=== PATIENT | female | born 1955 | race African-American/Black ===

== ENCOUNTER 2020-09-02 11:04 | Emergency (ER) | payer MEDICARE, MEDICAID, SELFPAY ==
[2020-09-02 11:24] VITALS: BP 123/68; PULSE 81; RESP 16; TEMP 36.7; O2SAT 97
--- NOTE | 2020-09-02 11:35 | ED.EYEPROB ---
HPI - Eye Problem General Chief complaint: Eye Problems Stated complaint: Eye Pain Time Seen by Provider: 09/02/20 11:35 Source: patient and RN notes reviewed History of Present Illness HPI Narrative: Patient is a 65-year-old female who presents the urgent care with complaints of bilateral eye irritation, worse on the right. Patient states that she believes that she got some of her fungal cream in her eyes. States that she did this this morning and was advised to be seen at the urgent care. Patient denies of any vision change but states that it does feel grainy when she closes her eyes . Denies of any trauma or injury to the eye. No other acute complaints. No acute distress noted. Patient aware of the plan of care. Some parts of this dictation were generated by voice recognition software and may contain typographical and/or grammatical inaccuracies. Related Data Home Medications Medication Instructions Recorded Confirmed clobetasol TOPICAL 09/02/20 clotrimazole applic TOPICAL 09/02/20 lamotrigine [Lamictal] 09/02/20 metoprolol succinate [Toprol XL] PO 09/02/20 olmesartan-hydrochlorothiazide tablet 09/02/20 [Benicar HCT] potassium chloride [Klor-Con 10] meq PO 09/02/20 Allergies Allergy/AdvReac Type Severity Reaction Status Date / Time ampicillin Allergy Mild Verified 06/14/19 18:33 codeine Allergy Mild Verified 06/14/19 18:33 diphenhydramine Allergy Mild Verified 06/14/19 18:33 hydroxyzine Allergy Mild Verified 06/14/19 18:33 morphine Allergy Mild Verified 06/14/19 18:33 phenytoin Allergy Mild Verified 06/14/19 18:33 sulfamethoxazole Allergy Mild Verified 06/14/19 18:33 tetracycline Allergy Mild Verified 06/14/19 18:33 trimethobenzamide Allergy Mild Verified 06/14/19 18:33 trimethoprim Allergy Mild Verified 06/14/19 18:33 divalproex sodium Allergy Unknown Verified 06/14/19 18:33 phenobarbital Allergy Unknown Verified 06/14/19 18:33 Review of Systems Review of Systems: Narrative: CONSTITUTIONAL: Denies fever, chills, or sweats. EYES: Reports of redness and irritation to bilateral eyes, worse on the right ENT: Denies rhinorrhea, congestion, sore throat, or otalgia. CARDIOVASCULAR: Denies chest pain, palpitations, or edema. RESPIRATORY: Denies cough or dyspnea. GASTROINTESTINAL: Denies abdominal pain, nausea, vomiting, or diarrhea. GENITOURINARY: Denies dysuria or hematuria. SKIN: Denies rash or itching. MUSCULOSKELETAL: Denies back pain, joint pain, or myalgia. NEUROLOGIC: Denies headache, numbness, or weakness. All other systems reviewed are negative, except as documented in HPI. PMFSH Comments At the time of my signature, I reviewed and agree with the nursing past medical, surgical, social, and family history. There is no relevant family history pertinent to the patient complaint. Exam Narrative: Exam Narrative: GENERAL: This is a well-nourished, well-developed patient, in no apparent distress. HEAD: normocephalic, atraumatic. EYES: PERRL. Sclera mildly erythemic bilaterally. Vision is grossly intact. No obvious foreign body or injury noted to bilateral eyes. Clear tearing. EARS: External ears normal NOSE: External nose normal with no obvious nasal discharge, nares without redness, no rhinorrhea. THROAT: Mucous membranes moist NECK: Neck supple SKIN: warm, intact with no suspicious lesions or rash, good texture and turgor. NEURO: awake, alert, and oriented to person, place and time. There were no obvious focal neurologic abnormalities. EXTREMITIES: No clubbing, cyanosis, or edema. Course Vital Signs Vital signs: Vital Signs Temperature 98.1 F 09/02/20 11:24 Pulse Rate 81 09/02/20 11:24 Respiratory Rate 16 09/02/20 11:24 Blood Pressure 123/68 09/02/20 11:24 Pulse Oximetry 97 09/02/20 11:24 Temperature 98.1 F 09/02/20 11:24 Pulse Rate 81 09/02/20 11:24 Respiratory Rate 16 09/02/20 11:24 Blood Pressure 123/68 09/02/20 11:24 Pulse Oximetry 97
== END 2020-09-02 12:04 | disposition home or self-care (01) ==
PROVIDERS: Emergency Provider Nurse Practitioner Family; PCP Family Medicine
DX: H57.89 Other specified disorders of eye and adnexa (principal); G40.909 Epilepsy, unspecified, not intractable, without status epilepticus; I10 Essential (primary) hypertension
CPT/HCPCS: 99213; G0463

== ENCOUNTER 2021-03-06 15:39 | Emergency (ER) | payer MEDICARE, MEDICAID, SELFPAY ==
[2021-03-06 15:51] VITALS: BP 117/64; PULSE 67; RESP 16; TEMP 36.4; O2SAT 100
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
[2021-03-06] MEDS: FAMOTIDINE 20 MG TABLET PO (16:46)
== END 2021-03-06 17:24 | disposition home or self-care (01) ==
PROVIDERS: Emergency Provider Nurse Practitioner Family
DX: L50.9 Urticaria, unspecified (principal); I10 Essential (primary) hypertension; G47.33 Obstructive sleep apnea (adult) (pediatric); G40.909 Epilepsy, unspecified, not intractable, without status epilepticus
CPT/HCPCS: 96372; 99213; A9270; G0463; J1100

== ENCOUNTER 2021-07-22 13:56 | Emergency (ER) | payer MEDICARE, MEDICAID, SELFPAY ==
[2021-07-22 14:09] VITALS: BP 138/81; PULSE 74; RESP 18; TEMP 36.2; O2SAT 97
--- NOTE | 2021-07-22 14:23 | ED.DENTAL ---
HPI - Dental/Oral General Chief complaint: Dental/Oral Stated complaint: Tooth Pain Time Seen by Provider: 07/22/21 14:23 Source: patient and RN notes reviewed Mode of arrival: ambulatory Limitations: no limitations History of Present Illness MD Complaint: tooth pain Location: Tooth # (12) Related Data Home Medications Medication Instructions Recorded Confirmed lamotrigine [Lamictal] 09/02/20 metoprolol succinate [Toprol XL] PO 09/02/20 potassium chloride [Klor-Con 10] meq PO 09/02/20 olmesartan-hydrochlorothiazide tablet 03/06/21 [Benicar HCT] Allergies Allergy/AdvReac Type Severity Reaction Status Date / Time ampicillin Allergy Mild Rash Verified 07/22/21 14:04 codeine Allergy Mild Rash Verified 07/22/21 14:04 diphenhydramine Allergy Mild Rash Verified 07/22/21 14:04 hydroxyzine Allergy Mild Rash Verified 07/22/21 14:04 morphine Allergy Mild Anaphylaxis Verified 07/22/21 14:04 phenytoin Allergy Mild Rash Verified 07/22/21 14:04 sulfamethoxazole Allergy Mild Rash Verified 07/22/21 14:04 tetracycline Allergy Mild Rash Verified 07/22/21 14:04 trimethobenzamide Allergy Mild Rash Verified 07/22/21 14:04 trimethoprim Allergy Mild Rash Verified 07/22/21 14:04 divalproex sodium Allergy Unknown Rash Verified 07/22/21 14:04 phenobarbital Allergy Unknown Rash Verified 07/22/21 14:04 Review of Systems Review of Systems: CONSTITUTIONAL: Denies malaise, chills, sweats, or fever. ENT: Denies swollen lips, swollen tongue, difficulty swallowing. Reports left upper dental pain and swelling CARDIOVASCULAR: Denies chest pain, palpitations, or edema. RESPIRATORY: Denies cough or dyspnea. SKIN: Denies rash or itching. MUSCULOSKELETAL: Denies myalgia. NEUROLOGIC: Denies headache. All systems reviewed & are unremarkable except as noted in HPI and below PMFSH Past Medical History Medical History (Updated 07/22/21 @ 14:34 by Guerda Worley NP) Hx of migraines Hypertension Obesity Obstructive sleep apnea Seizures Tumor Tumor removed from underneath chin Surgical History Surgical History (Updated 03/06/21 @ 16:41 by ANUPAM Burnett) History of cholecystectomy History of hysterectomy Family History Family History (Updated 03/06/21 @ 16:43 by ANUPAM Burnett) Father Throat cancer Smoker Mother , from complications related to COPD obtain due to secondhand smoke Hypertension Social History Social History (Updated 03/06/21 @ 16:43 by ANUPAM Burnett) Smoking status: Never smoker Tobacco type: cigarettes Second hand tobacco smoke exposure: No Alcohol intake: never Substance use: never Additional occupation/education comments: Disable Gender identity (if verbalized by the patient): Female Sexual Orientation (if Verbalized by the Patient): Straight or Heterosexual Comments At time of signature, agree with nursing past medical, surgical, social and family history. There is no relevant family history pertinent to the presenting complaint Exam Narrative: GENERAL: Well-appearing, well-nourished, and in no acute distress. HEAD: Normocephalic, atraumatic. EYES: PERRLA, sclera clear, and EOMI. No nystagmus. ENT: Nares irina. Mucous membranes moist. Oropharynx without edema, erythema or lesions. Missing teeth, broken teeth, caries noted left upper facial swelling noted NECK: Supple. CHEST: No respiratory distress. Speaks in full sentences. HEART: Regular rate and rhythm. SKIN: Warm, dry, no visible rash. NEURO: Alert and oriented x3. PSYCH: Normal mood and affect Course Course Emergency Course: Patient is aware of diagnosis, understands and agrees to treatment plan. Anticipatory guidance given. Patient agrees to follow-up as directed and is aware of reasons to seek care at the emergency department. Portions of this record may have been created with voice recognition software Vital Signs Vital signs: Vital Signs Temperature 97.1 F
== END 2021-07-22 14:45 | disposition home or self-care (01) ==
PROVIDERS: Emergency Provider Nurse Practitioner; PCP Family Medicine
DX: K04.7 Periapical abscess without sinus (principal); I10 Essential (primary) hypertension; E66.9 Obesity, unspecified; G47.33 Obstructive sleep apnea (adult) (pediatric); G40.909 Epilepsy, unspecified, not intractable, without status epilepticus
CPT/HCPCS: 99213; G0463

== ENCOUNTER 2021-08-23 14:17 | Emergency (ER) | payer MEDICARE, MEDICAID, SELFPAY ==
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
[2021-08-23 14:27] VITALS: BP 148/83; PULSE 70; RESP 18; TEMP 36.2; O2SAT 99
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
== END 2021-08-23 15:41 | disposition home or self-care (01) ==
PROVIDERS: Emergency Provider Nurse Practitioner Family
DX: R51.9 Headache, unspecified (principal); Y26.XXXA Exposure to smoke, fire and flames, undetermined intent, initial encounter; I10 Essential (primary) hypertension; E66.9 Obesity, unspecified; Z68.43 Body mass index [BMI] 50.0-59.9, adult; G47.33 Obstructive sleep apnea (adult) (pediatric); G40.909 Epilepsy, unspecified, not intractable, without status epilepticus
CPT/HCPCS: 71046; 99213; G0463

== ENCOUNTER 2022-10-03 00:43 | Day surgery (SDC) | payer MEDICARE, MEDICAID, SELFPAY ==
[2022-09-22 14:15] VITALS: BMI 52.7
[2022-10-03 06:45] VITALS: BP 145/76; PULSE 84; RESP 17; TEMP 36.1; O2SAT 96; BMI 53.6
[2022-10-03] MEDS: LACTATED RINGERS 1,000 ML 150 ML IV CONT (07:02)
--- NOTE | 2022-10-03 07:07 | WPDANESEPPF ---
Anes - Initial Pre Proc Eval Procedure: Operation Date: 10/03/22 08:00 Proposed Procedures p Colonoscopy - Octaviano Harris MD Date/Time: 10/03/22 07:07 Surgeon: Octaviano Harris MD Pre Op Diagnosis: positive cologuard Patient Data Age: 67 Gender: F Height: 1.6 m Weight: 137.4 kg Last Vital Signs Temp 36.1 C L 10/03/22 06:45 Pulse 84 10/03/22 06:45 Resp 17 10/03/22 06:45 BP 145/76 H 10/03/22 06:45 Pulse Ox 96 10/03/22 06:45 O2 Del Method Room Air 10/03/22 06:45 Allergies Allergy/AdvReac Type Severity Reaction Status Date / Time ampicillin Allergy Mild Rash Verified 10/03/22 06:43 codeine Allergy Mild Rash Verified 10/03/22 06:43 diphenhydramine Allergy Mild Rash Verified 10/03/22 06:43 hydroxyzine Allergy Mild Rash Verified 10/03/22 06:43 morphine Allergy Mild Anaphylaxis Verified 10/03/22 06:43 phenytoin Allergy Mild Rash Verified 10/03/22 06:43 sulfamethoxazole Allergy Mild Rash Verified 10/03/22 06:43 tetracycline Allergy Mild Rash Verified 10/03/22 06:43 trimethobenzamide Allergy Mild Rash Verified 10/03/22 06:43 trimethoprim Allergy Mild Rash Verified 10/03/22 06:43 divalproex sodium Allergy Unknown Rash Verified 10/03/22 06:43 phenobarbital Allergy Unknown Rash Verified 10/03/22 06:43 Home Medications Medication Instructions Recorded Confirmed Type lamotrigine 200 mg tablet 200 mg PO DAILY 09/02/20 10/03/22 History (Lamictal) metoprolol succinate 50 mg 50 mg PO DAILY 09/02/20 10/03/22 History tablet,extended release 24 hr (Toprol XL) olmesartan 20 1 tablet PO DAILY 03/06/21 10/03/22 History mg-hydrochlorothiazide 12.5 mg tablet (Benicar HCT) clotrimazole-betamethasone 1 1 applic topical DAILY 08/23/21 10/03/22 History %-0.05 % topical cream Patient hx anesthesia problems: none Family hx anesthesia problems: none Results Review: All pre-operative results and documents have been reviewed as part of the pre-operative evaluation. [facility] Past Medical History Medical History (Updated 10/03/22 @ 07:07 by Eber Ortiz MD) Hx of migraines Hypertension Morbid obesity Obesity Obstructive sleep apnea Seizures Tumor Tumor removed from underneath chin Surgical History Surgical History History of cholecystectomy History of hysterectomy Family History Family History Father Throat cancer Smoker Mother , from complications related to COPD obtain due to secondhand smoke Hypertension Social History Social History Smoking status: Never smoker Tobacco type: cigarettes Second hand tobacco smoke exposure: No Alcohol intake: never Substance use: never Substance use type: does not use Living arrangements: with family Additional occupation/education comments: Disable Gender identity (if verbalized by the patient): Female Sexual Orientation (if Verbalized by the Patient): Straight or Heterosexual Spiritual care concerns: No Anes - Eval Final PreProcedure Day of Procedure 10/03/22 07:07 Patient weight: super morbidly obese Heart: regular rate and rhythm Lungs: clear to auscultation Airway: Mallampati scale class II Last oral intake: >/= 8 hours ASA classification: III Emergent: no Anesthetic plan: proceed Anesthesia type and monitoring: general GIVS and standard monitoring Results Review: All pre-operative results and documents have been reviewed as part of the pre-operative evaluation. Informed Consent: The patient's anesthetic plan and its attendant risks and benefits were discussed with the patient/family/POA. Questions were solicited and answers provided to the satisfaction of the patient/family/POA.
--- NOTE | 2022-10-03 07:32 | PM.HPGS ---
History of Present Illness History of Present Illness Consent: Risks, benefits, and alternatives have been discussed and questions answered. Patient agrees to proceed with procedure. Chief complaint: positive cologuard Narrative: Carolina Rowland is a 67 year old female Presents today for colonoscopy. Patient recently found to have positive screening Cologuard test. Patient reports her current weight appetite bowel movements are normal. Patient denies abdominal pain. She has had no bleeding. Family history is noncontributory. Screening colonoscopy to be performed today because of positive Cologuard test. Review of Systems Review of Systems: Review of systems noncontributory. [facility] Past Medical History Medical History (Updated 10/03/22 @ 07:33 by Octaviano Harris MD) Hx of migraines Hypertension Morbid obesity Obesity Obstructive sleep apnea Seizures Tumor Tumor removed from underneath chin Surgical History Surgical History History of cholecystectomy History of hysterectomy Family History Family History Father Throat cancer Smoker Mother , from complications related to COPD obtain due to secondhand smoke Hypertension Social History Social History Smoking status: Never smoker Tobacco type: cigarettes Second hand tobacco smoke exposure: No Alcohol intake: never Substance use: never Substance use type: does not use Living arrangements: with family Additional occupation/education comments: Disable Gender identity (if verbalized by the patient): Female Sexual Orientation (if Verbalized by the Patient): Straight or Heterosexual Spiritual care concerns: No Meds Home Medications and Allergies Home Medications Medication Instructions Recorded Confirmed Type lamotrigine 200 mg tablet 200 mg PO DAILY 09/02/20 10/03/22 History (Lamictal) metoprolol succinate 50 mg 50 mg PO DAILY 09/02/20 10/03/22 History tablet,extended release 24 hr (Toprol XL) olmesartan 20 1 tablet PO DAILY 03/06/21 10/03/22 History mg-hydrochlorothiazide 12.5 mg tablet (Benicar HCT) clotrimazole-betamethasone 1 1 applic topical DAILY 08/23/21 10/03/22 History %-0.05 % topical cream Allergies Allergy/AdvReac Type Severity Reaction Status Date / Time ampicillin Allergy Mild Rash Verified 10/03/22 06:43 codeine Allergy Mild Rash Verified 10/03/22 06:43 diphenhydramine Allergy Mild Rash Verified 10/03/22 06:43 hydroxyzine Allergy Mild Rash Verified 10/03/22 06:43 morphine Allergy Mild Anaphylaxis Verified 10/03/22 06:43 phenytoin Allergy Mild Rash Verified 10/03/22 06:43 sulfamethoxazole Allergy Mild Rash Verified 10/03/22 06:43 tetracycline Allergy Mild Rash Verified 10/03/22 06:43 trimethobenzamide Allergy Mild Rash Verified 10/03/22 06:43 trimethoprim Allergy Mild Rash Verified 10/03/22 06:43 divalproex sodium Allergy Unknown Rash Verified 10/03/22 06:43 phenobarbital Allergy Unknown Rash Verified 10/03/22 06:43 Vital Signs Vital Signs - 24 hr 10/03/22 06:45 Temperature 97 F L Pulse Rate 84 Respiratory Rate 17 Blood Pressure 145/76 H Pulse Oximetry 96 Oxygen Delivery Room Air Exam Narrative: Physical exam reveals patient to be alert. Vital signs stable. HEENT exam is unremarkable. Patient is anicteric. Lungs are clear to auscultation and percussion. Heart is without murmur or extra sounds. Abdomen bowel sounds are present soft nontender with no hepatosplenomegaly. Digital external rectal exam is normal. Assessment and Plan Assessment and plan (1) Positive colorectal cancer screening using Cologuard test: Code(s): R19.5 - Other fecal abnormalities Status: Acute Assessment and Plan: Patient presents today for screening colonoscopy because of positive C
[2022-10-03 08:26] VITALS: BP 112/65; PULSE 73; RESP 24; O2SAT 99
[2022-10-03 08:36] VITALS: BP 130/74; PULSE 66; RESP 14; O2SAT 99
[2022-10-03 08:46] VITALS: BP 121/72; PULSE 68; RESP 18; O2SAT 100
== END 2022-10-03 08:58 | disposition home or self-care (01) ==
PROVIDERS: PCP Family Medicine; Visit Provider Internal Medicine Gastroenterology
PROC: 0DJD8ZZ Inspection of Lower Intestinal Tract, Via Natural or Artificial Opening Endoscopic (ICD-10-PCS; CPT 45378; principal; 2022-10-03 08:00)
DX: Z12.11 Encounter for screening for malignant neoplasm of colon (principal); R19.5 Other fecal abnormalities; D12.2 Benign neoplasm of ascending colon; D12.5 Benign neoplasm of sigmoid colon; K57.30 Diverticulosis of large intestine without perforation or abscess without bleeding; I10 Essential (primary) hypertension; R56.9 Unspecified convulsions; G47.33 Obstructive sleep apnea (adult) (pediatric); E66.01 Morbid (severe) obesity due to excess calories; Z68.43 Body mass index [BMI] 50.0-59.9, adult
CPT/HCPCS: 45385; 88305; J2704; J7120

== ENCOUNTER 2024-04-23 12:31 | Emergency (ER) | payer MEDICARE, MEDICAID, SELFPAY ==
--- NOTE | 2024-04-23 12:54 | ECG_ITS ---
Test Date: 2024-04-23 12:53:16 Measurements Intervals Holt Rate: 78 P: 48 DE: 184 QRS: 12 QRSD: 94 T: 51 QT: 388 QTc: 443 Interpretive Statements SINUS RHYTHM BASELINE ARTIFACT- I, II, III, AVR, AVL, AVF, V1-V6 NORMAL ECG No previous ECG available for comparison Electronically Signed On 04-23-2024 13:00:43 CDT by Les Leyva D.O.
[2024-04-23 13:02] VITALS: BP 145/64; PULSE 80; RESP 20; TEMP 36.8; O2SAT 99
--- NOTE | 2024-04-23 13:08 | ED.SOB ---
HPI - SOB/Dyspnea General Chief Complaint: Shortness of Breath/Dyspnea Stated Complaint: SOB,chest hurts Time Seen by Provider: 04/23/24 12:56 Source: patient and RN notes reviewed Mode of arrival: ambulatory Limitations: no limitations History of Present Illness HPI Narrative: Patient presents today complaining of left upper chest pain and fluttering that has been present intermittently for the last several weeks as well as shortness of breath for the last 2 days that has been waxing and waning. Her chest pain is now a low dull ache. She denies any recent illness, URI symptoms, cough. She is requesting a COVID-19 test, although a denies any recent exposure. She has been using an albuterol inhaler that has not been helping. She was initially given the albuterol inhaler sometime last year after she had COVID and was short of breath that time. Denies any history of asthma or COPD. Related Data Home Medications Medication Instructions Recorded Confirmed lamotrigine 200 mg tablet 200 mg PO DAILY 09/02/20 04/23/24 (Lamictal) metoprolol succinate 50 mg 50 mg PO DAILY 09/02/20 04/23/24 tablet,extended release 24 hr (Toprol XL) olmesartan 20 1 tablet PO DAILY 03/06/21 04/23/24 mg-hydrochlorothiazide 12.5 mg tablet (Benicar HCT) albuterol sulfate 90 mcg/actuation 2 puff inhalation PRN PRN 04/23/24 04/23/24 aerosol inhaler Shortness Of Breath calcitriol 0.25 mcg capsule 0.25 mcg PO DAILY 04/23/24 04/23/24 dapagliflozin propanediol 10 mg 10 mg PO DAILY 04/23/24 04/23/24 tablet (Farxiga) ferrous sulfate 325 mg (65 mg 65 mg PO DAILY 04/23/24 04/23/24 iron) tablet Allergies Allergy/AdvReac Type Severity Reaction Status Date / Time ampicillin Allergy Mild Rash Verified 04/23/24 12:56 codeine Allergy Mild Rash Verified 04/23/24 12:56 diphenhydramine Allergy Mild Rash Verified 04/23/24 12:56 hydroxyzine Allergy Mild Rash Verified 04/23/24 12:56 morphine Allergy Mild Anaphylaxis Verified 04/23/24 12:56 phenytoin Allergy Mild Rash Verified 04/23/24 12:56 sulfamethoxazole Allergy Mild Rash Verified 04/23/24 12:56 tetracycline Allergy Mild Rash Verified 04/23/24 12:56 trimethobenzamide Allergy Mild Rash Verified 04/23/24 12:56 trimethoprim Allergy Mild Rash Verified 04/23/24 12:56 divalproex sodium Allergy Unknown Rash Verified 04/23/24 12:56 phenobarbital Allergy Unknown Rash Verified 04/23/24 12:56 Review of Systems Review of Systems: CONSTITUTIONAL: Denies body aches, fever, chills, or sweats. EYES: Denies visual changes, redness, or discharge. ENT: Denies rhinorrhea, congestion, sore throat, or otalgia. CARDIOVASCULAR: Denies edema.+chest pain and fluttering RESPIRATORY: Denies cough. + shortness of breath GASTROINTESTINAL: Denies abdominal pain, nausea, vomiting, or diarrhea. GENITOURINARY: Denies dysuria or hematuria. SKIN: Denies rash, itching, or wounds. MUSCULOSKELETAL: Denies back pain, joint pain, or myalgia. NEUROLOGIC: Denies headache, numbness, tingling, or weakness. PSYCH: Denies depression or anxiety. [facility] Past Medical History Medical History (Updated 04/23/24 @ 13:17 by Kathleen Lechuga, [facility]) Hx of migraines Hypertension Morbid obesity Obesity Obstructive sleep apnea Seizures Tumor Tumor removed from underneath chin Surgical History Surgical History History of cholecystectomy History of hysterectomy Family History Family History Father Throat cancer Smoker Mother , from complications related to COPD obtain due to secondhand smoke Hypertension Social History Social History Smoking status: Never smoker Tobacco type: cigarettes Second hand tobacco smoke exposure: No Alcohol intake: never Substance use: never Substance use type: does not use Living arrangements: wi
[2024-04-23 13:12] LABS: EDINFLUASCREEN Negative; EDINFLUBSCREEN Negative
== END 2024-04-23 13:15 | disposition short-term general hospital (02) ==
PROVIDERS: Emergency Provider Nurse Practitioner; PCP Family Medicine
DX: R06.02 Shortness of breath (principal); R07.9 Chest pain, unspecified; Z20.822 Contact with and (suspected) exposure to COVID-19; I10 Essential (primary) hypertension; E66.01 Morbid (severe) obesity due to excess calories; Z68.43 Body mass index [BMI] 50.0-59.9, adult; G40.909 Epilepsy, unspecified, not intractable, without status epilepticus
CPT/HCPCS: 87426; 87804; 93005; 99213; G0463

== ENCOUNTER 2024-06-26 16:20 | Emergency (ER) | payer MEDICARE, MEDICAID, SELFPAY ==
--- NOTE | ~2024-06-26 | XR_ITS ---
EXAMINATION: XR chest 2V DATE: 06/26/2024 17:00 INDICATION: Chest pain. TECHNIQUE: Frontal and lateral views of the chest were obtained. COMPARISON: None. FINDINGS: There is no pneumonia, pleural effusion, or pneumothorax. Cardiomegaly is noted. IMPRESSION: 1. Cardiomegaly. Reviewed, dictated and finalized at location A. IMPRESSION: 1. Cardiomegaly.
--- NOTE | 2024-06-26 16:21 | ECG_ITS ---
Test Date: 2024-06-26 16:34:17 Measurements Intervals [place] Rate: 86 P: 48 [place]: 211 QRS: 9 QRSD: 97 T: 62 QT: 373 QTc: 449 Interpretive Statements SINUS RHYTHM WITH FIRST DEGREE AV BLOCK LEFT VENTRICULAR HYPERTROPHY WITH ST-T CHANGE BASELINE ARTIFACT- I, II, AVR, AVL, AVF BORDERLINE ECG Compared to ECG 04/23/2024 12:53:16 First degree AV block now present Electronically Signed On 06-26-2024 16:48:30 CDT by Les Leyva D.O.
[2024-06-26 16:23] VITALS: BP 157/91; PULSE 111; RESP 17; TEMP 36.3; O2SAT 98
--- NOTE | 2024-06-26 16:30 | ED.CHESTPAIN ---
HPI - Chest Pain General Chief Complaint: Chest Pain <Maria Dolores Fregoso PA-C - Last Filed: 06/29/24 14:33> Stated Complaint: chest pain <Maria Dolores Fregoso PA-C - Last Filed: 06/29/24 14:33> Time Seen by Provider: 06/26/24 16:30 <Maria Dolores Fregoso PA-C - Last Filed: 06/29/24 14:33> Focused HPI: this is a 69-year-old female that presents to the emergency department for chest pain. Started with afternoon. Reports associated shortness of breath. The pain is substernal. Denies fevers or lower extremity edema. GENERAL: Well-appearing, well-nourished, and in no acute distress. HEAD: Normocephalic, atraumatic. CHEST: Clear to auscultation. ?No respiratory distress. HEART: Regular rate and rhythm.? NEURO: ?Alert and oriented x3. Patient screened in triage and initial orders placed.? ?Additional care and disposition to be based upon?diagnostic testing and treatment. <Maria Dolores Fregoso PA-C - Last Filed: 06/29/24 14:33> History of Present Illness HPI narrative: patient 69-year-old female who presents emergency department with chief complaint of chest pain. Patient reports that today she started having sharp type pain in her chest patient reports radiates to her back felt short of breath during the episodes patient states pain has improved reports still there patient reports no prior cardiac history <Amos Evangelista MD - Last Filed: 06/27/24 02:28> Related Data Home Medications: Home Medications Medication Instructions Recorded Confirmed lamotrigine 200 mg tablet 200 mg PO DAILY 09/02/20 04/23/24 (Lamictal) metoprolol succinate 50 mg 50 mg PO DAILY 09/02/20 04/23/24 tablet,extended release 24 hr (Toprol XL) olmesartan 20 1 tablet PO DAILY 03/06/21 04/23/24 mg-hydrochlorothiazide 12.5 mg tablet (Benicar HCT) albuterol sulfate 90 mcg/actuation 2 puff inhalation PRN PRN 04/23/24 04/23/24 aerosol inhaler Shortness Of Breath calcitriol 0.25 mcg capsule 0.25 mcg PO DAILY 04/23/24 04/23/24 dapagliflozin propanediol 10 mg 10 mg PO DAILY 04/23/24 04/23/24 tablet (Farxiga) ferrous sulfate 325 mg (65 mg 65 mg PO DAILY 04/23/24 04/23/24 iron) tablet <Maria Dolores Fregoso PA-C - Last Filed: 06/29/24 14:33> Allergies/Adverse Reactions: Allergies Allergy/AdvReac Type Severity Reaction Status Date / Time ampicillin Allergy Mild Rash Verified 06/26/24 16:26 codeine Allergy Mild Rash Verified 06/26/24 16:26 diphenhydramine Allergy Mild Rash Verified 06/26/24 16:26 hydroxyzine Allergy Mild Rash Verified 06/26/24 16:26 morphine Allergy Mild Anaphylaxis Verified 06/26/24 16:26 phenytoin Allergy Mild Rash Verified 06/26/24 16:26 sulfamethoxazole Allergy Mild Rash Verified 06/26/24 16:26 tetracycline Allergy Mild Rash Verified 06/26/24 16:26 trimethobenzamide Allergy Mild Rash Verified 06/26/24 16:26 trimethoprim Allergy Mild Rash Verified 06/26/24 16:26 divalproex sodium Allergy Unknown Rash Verified 06/26/24 16:26 phenobarbital Allergy Unknown Rash Verified 06/26/24 16:26 <Maria Dolores Fregoso PA-C - Last Filed: 06/29/24 14:33> Review of Systems Review of Systems: A 10 system review of systems was completed on the patient and is negative except for what is stated in the HPI. Nursing and ancillary documentation was reviewed. <Amos Evangelista MD - Last Filed: 06/27/24 02:28> [facility] Past Medical History Medical History: Medical History Hx of migraines Hypertension Morbid obesity Obesity Obstructive sleep apnea Seizures Tumor Tumor removed from underneath chin <Maria Dolores Fregoso PA-C - Last Filed: 06/29/24 14:33> Surgical History Surgical History: Surgical History History of cholecystectomy History of hysterectomy <Maria Dolores Fregoso PA-C - Last Filed: 09/15/24 14:33> Family History Family History: Family History (Rev
[2024-06-26 16:48] LABS: Basophils Percent Auto 0.4 % (0.2-1.2); Eosinophils Absolute Auto 0.1 K/mm3 (0-0.3); Eosinophils Percent Auto 1.2 % (0-4.4); Hematocrit 35.1 % (37.0-47.0); Hemoglobin 11.2 g/dL (12.0-15.0); Immature Granulocyte Absolute 0.02 K/mm3 (0.00-0.031); Immature Granulocyte Percent A 0.4 % (0-0.5); Lymphocytes Absolute Auto 1.85 K/mm3 (0.9-3.2); Lymphocytes Percent Auto 36.1 % (18.3-44.2); Mean Corpuscular HGB Conc 31.9 g/dl (32-36); Mean Corpuscular Volume 87.8 fl (80-100); Monocytes Absolute Auto 0.4 K/mm3 (0.1-0.6); Monocytes Percent Auto 7.8 % (2.6-8.5); Neutrophils Absolute Auto 2.8 K/mm3 (1.3-6.7); Neutrophils Percent Auto 54.1 % (45.5-73.1); Platelet Count Result 182 k/mm3 (150-375); Red Cell Distribution Width 13.8 % (11.5-14.5); White Blood Count 5.1 K/mm3 (4.5-10.0)
[2024-06-26 16:58] LABS: Prothrombin Time 14.2 Seconds (11.1-14.7)
[2024-06-26 16:59] LABS: Partial Thromboplastin Time 59.4 Seconds (22.3-36.8)
[2024-06-26 17:04] LABS: Alanine Aminotransferase 13 U/L (6-35); Alkaline Phosphatase 61 U/L (38-126); Anion Gap 11 mmol/L (4-12); Aspartate Amino Transferase 27 U/L (14-36); Bilirubin,Total 0.5 mg/dL (0.2-1.3); Blood Urea Nitrogen 25 mg/dL (7-17); Calcium 8.8 mg/dL (8.4-10.2); Carbon Dioxide 24 mmol/L (22-30); Chloride 104 mmol/L (98-107); Estimated CRCL calculation 29 ml/min; Estimated Glomerular Filt Rate 30; Glucose 154 mg/dL (65-110); Lipase 275 U/L (23-300); Potassium 3.5 mmol/L (3.4-5.0); Sodium 139 mmol/L (137-145)
[2024-06-26 17:15] LABS: Troponin I < 0.012 ng/mL (0.000-0.034)
--- NOTE | 2024-06-26 19:43 | ECG_ITS ---
Test Date: 2024-06-26 19:57:36 Measurements Intervals [place] Rate: 65 P: 50 [place]: 210 QRS: 13 QRSD: 93 T: 43 QT: 404 QTc: 423 Interpretive Statements SINUS RHYTHM WITH FIRST DEGREE AV BLOCK LEFT VENTRICULAR HYPERTROPHY BASELINE ARTIFACT- I, II, III, AVR, AVL, AVF, V6 BORDERLINE ECG Compared to ECG 06/26/2024 16:34:17 NO SIGNIFICANT CHANGE Electronically Signed On 06-27-2024 06:38:50 CDT by Les Leyva D.O.
[2024-06-26 19:55] VITALS: BP 141/64; PULSE 66; RESP 16; TEMP 36.7; O2SAT 99
[2024-06-26 20:27] LABS: Troponin I < 0.012 ng/mL (0.000-0.034)
[2024-06-27] VITALS (17 sets, daily range): BP systolic 117–148; BP diastolic 74–86; PULSE 54–76; RESP 12–25; TEMP 37.1; O2SAT 90–100
--- NOTE | 2024-06-27 00:27 | ECG_ITS ---
Test Date: 2024-06-27 00:32:27 Measurements Intervals [place] Rate: 62 P: 62 [place]: 132 QRS: 13 QRSD: 98 T: 54 QT: 440 QTc: 449 Interpretive Statements SINUS RHYTHM BORDERLINE AV CONDUCTION DELAY LEFT VENTRICULAR HYPERTROPHY BASELINE ARTIFACT- I, III, AVR, AVL, AVF BORDERLINE ECG Compared to ECG 06/26/2024 19:57:36 NO SIGNIFICANT CHANGE Electronically Signed On 06-27-2024 06:47:58 CDT by Les Leyva D.O.
[2024-06-27] MEDS: BELLADONNA ALK/PHENOB ELIX 10 ML, MAG HYDROX/ALUMINUM HYD/SIMETH 30 ML, LIDOCAINE HCL 2... PO (01:02)
[2024-06-27] MEDS: ASPIRIN 81 MG CHEWABLE TABLET 324 MG PO (01:02)
[2024-06-27 01:06] LABS: Troponin I < 0.012 ng/mL (0.000-0.034)
== END 2024-06-27 06:14 | disposition home or self-care (01) ==
PROVIDERS: Emergency Medicine; Emergency Provider Emergency Medicine; PCP Family Medicine
DX: R07.89 Other chest pain (principal); I10 Essential (primary) hypertension; E66.01 Morbid (severe) obesity due to excess calories; Z68.41 Body mass index [BMI] 40.0-44.9, adult; Z90.710 Acquired absence of both cervix and uterus; Z90.49 Acquired absence of other specified parts of digestive tract; Z79.899 Other long term (current) drug therapy; I51.7 Cardiomegaly; R94.31 Abnormal electrocardiogram [ECG] [EKG]; I44.0 Atrioventricular block, first degree
CPT/HCPCS: 36415; 71046; 80053; 83690; 84484; 85025; 85610; 85730; 93005; 99284; A9270

== ENCOUNTER 2024-09-17 18:02 | Emergency (ER) | payer MEDICARE, MEDICAID, SELFPAY ==
--- NOTE | ~2024-09-17 | XR_ITS ---
XR chest 2V Ordering provider: Jaxson Velázquez MD History: 69 years Female with . chest pain, dyspnea . Comparison: None. FINDINGS: MEDIASTINUM: The cardiac silhouette is slightly enlarged. Congestive renetta. LUNGS: No effusions or pneumothorax. Prominent bronchovascular markings in the right lung base which may indicate atelectasis versus early pneumonia. Follow-up advised. OTHER: No free air under the diaphragm. IMPRESSION: Prominent bronchovascular markings in the right lower lobe area which may indicate atelectasis versus early pneumonia. Reviewed, dictated and finalized at location A. [employer] IMPRESSION: Prominent bronchovascular markings in the right lower lobe area which may indic ate atelectasis versus early pneumonia.
--- NOTE | 2024-09-17 18:03 | ECG_ITS ---
Test Date: 2024-09-17 18:14:03 Measurements Intervals [place] Rate: 97 P: 59 [place]: 166 QRS: 14 QRSD: 89 T: 69 QT: 338 QTc: 431 Interpretive Statements SINUS RHYTHM NONSPECIFIC T-WAVE ABNORMALITY Compared to ECG 06/27/2024 00:32:27 T-wave abnormality now present Left ventricular hypertrophy no longer present Electronically Signed On 09-18-2024 09:49:18 [employer] TECHNICIAN by Jb Piña M.D.
--- NOTE | 2024-09-17 18:09 | ED_ITS ---
HPI - Chest Pain General Chief Complaint: Chest Pain Stated Complaint: chest pain, dyspnea, sweating and vomiting Time Seen by Provider: 09/17/24 18:10 Focused HPI: Patient is a 69-year-old female, with past medical history of diabetes, hypertension, EPI, leaky valve , who presents to the ED with c/o CP. patient reports the chest pain began approximately 1 hour prior to arrival and has been intermittent. Denies aggravating or relieving factors. States pain was present in midsternal chest, radiating through to her back. Pain did began to radiate up slightly into her neck region as well. Was associated shortness breath, diaphoresis, nausea, vomiting. States pain is improved currently. Denies recent cough or cold symptoms pain or swelling in legs. Sees Dr. Solano with Cardiology. GENERAL: Well-appearing, morbidly obese with BMI of 54.7 and in no acute distress. HEAD: Normocephalic, atraumatic. CHEST: Clear to auscultation. ?No respiratory distress. No significant focal lung sounds. HEART: Regular rate and rhythm.? NEURO: ?Alert and oriented x3. Patient screened in triage and initial orders placed.? ?Additional care and disposition to be based upon?diagnostic testing and treatment. Source: patient Mode of arrival: ambulatory Limitations: no limitations Related Data Home Medications Medication Instructions Recorded Confirmed lamotrigine 200 mg tablet 200 mg PO DAILY 09/02/20 04/23/24 (Lamictal) metoprolol succinate 50 mg 50 mg PO DAILY 09/02/20 04/23/24 tablet,extended release 24 hr (Toprol XL) olmesartan 20 1 tablet PO DAILY 03/06/21 04/23/24 mg-hydrochlorothiazide 12.5 mg tablet (Benicar HCT) albuterol sulfate 90 mcg/actuation 2 puff inhalation PRN PRN 04/23/24 04/23/24 aerosol inhaler Shortness Of Breath calcitriol 0.25 mcg capsule 0.25 mcg PO DAILY 04/23/24 04/23/24 dapagliflozin propanediol 10 mg 10 mg PO DAILY 04/23/24 04/23/24 tablet (Farxiga) ferrous sulfate 325 mg (65 mg 65 mg PO DAILY 04/23/24 04/23/24 iron) tablet Allergies Allergy/AdvReac Type Severity Reaction Status Date / Time ampicillin Allergy Mild Rash Verified 06/26/24 16:26 codeine Allergy Mild Rash Verified 06/26/24 16:26 diphenhydramine Allergy Mild Rash Verified 06/26/24 16:26 hydroxyzine Allergy Mild Rash Verified 06/26/24 16:26 morphine Allergy Mild Anaphylaxis Verified 06/26/24 16:26 phenytoin Allergy Mild Rash Verified 06/26/24 16:26 sulfamethoxazole Allergy Mild Rash Verified 06/26/24 16:26 tetracycline Allergy Mild Rash Verified 06/26/24 16:26 trimethobenzamide Allergy Mild Rash Verified 06/26/24 16:26 trimethoprim Allergy Mild Rash Verified 06/26/24 16:26 divalproex sodium Allergy Unknown Rash Verified 06/26/24 16:26 phenobarbital Allergy Unknown Rash Verified 06/26/24 16:26 [facility] Past Medical History Medical History Hx of migraines Hypertension Morbid obesity Obesity Obstructive sleep apnea Seizures Tumor Tumor removed from underneath chin Surgical History Surgical History History of cholecystectomy History of hysterectomy Family History Family History Father Throat cancer Smoker Mother , from complications related to COPD obtain due to secondhand smoke Hypertension Social History Social History Smoking status: Never smoker Tobacco type: cigarettes Second hand tobacco smoke exposure: No Alcohol intake: never Substance use: never Substance use type: does not use Living arrangements: with family Occupation/Education: other Additional occupation/education comments: Disable Gender identity (if verbalized by the patient): Female Sexual Orientation (if Verbalized by the Patient): Straight or Heterosexual Spiritual care concerns: No Course Vital Signs Vital signs: Vital Signs Temperature 97.7 F 09/17/24 18:10 Pulse Rate 96 09/17/24 18:10 Respiratory Rate 19 09/17/24 18:10 Blood Pressure 138/90 09/17/24 18:10 Pulse Oximetry 96 09/17/24 18:10 Oxygen Delivery Room Air 09/17/24 18:10 Temperature 97.7 F 09/17/24 18:10 Pulse Rate 96 09/17/24 18:10 Respiratory Rate 19 09/17/24 18:10 Blood Pressure 138/90 09/17/24 18:10 Pulse Oximetry 96 09/17/24 18:10 Oxygen Delivery Room Air 09/17/24 18:10 MDM - Chest Pain MDM Narrative Medical decision making narrative: MSE by JEANE in triage. Lab Data 09/17/24 18:16 09/17/24 18:16 Labs: Lab Results 09/17/24 Range/Units 18:16 WBC 7.5 (4.5-10.0) K/mm3 RBC 4.09 L (4.2-5.4) M/mm3 Hgb 11.2 L (12.0-15.0) g/dL Hct 36.0 L (37.0-47.0) % MCV 88.0 (80-100) fl MCH 27.4 (26-34) pg MCHC 31.1 L (32-36) g/dl RDW 13.5 (11.5-14.5) % Plt Count 175 (150-375) k/mm3 MPV 10.6 H (7.4-10.4) fl Immature Gran % (Auto) 0.1 (0-0.5) % Neut % (Auto) 42.9 L (45.5-73.1) % Lymph % (Auto) 48.1 H (18.3-44.2) % [place] % (Auto) 7.3 (2.6-8.5) % Eos % (Auto) 1.2 (0-4.4) % Baso % (Auto) 0.4 (0.2-1.2) % Lymph # (Auto) 3.63 H (0.9-3.2) K/mm3 [place] # (Auto) 0.6 (0.1-0.6) K/mm3 Eos # (Auto) 0.1 (0-0.3) K/mm3 Baso # (Auto) 0.0 (0.0-0.1) K/mm3 Abs Immat Gran (auto) 0.01 (0.00-0.031) K/mm3 Absolute Neuts (auto) 3.2 (1.3-6.7) K/mm3 Absolute Nucleated RBC 0.000 (0.0-0.012) K/mm3 Nucleated RBC % 0.0 (0.0-0.2) % PT 13.6 (11.1-14.7) Seconds INR 1.0 APTT 64.4 H (22.3-36.8) Seconds D-Dimer 0.45 (<0.48) ug/mL Sodium 139 (137-145) mmol/L Potassium 3.8 (3.4-5.0) mmol/L Chloride 107 (98-107) mmol/L Carbon Dioxide 26 (22-30) mmol/L Anion Gap 6 (4-12) mmol/L BUN 30 H (7-17) mg/dL Creatinine 2.40 H (0.7-1.0) mg/dL Estim Creat Clear Calc 28 ml/min Estimated GFR 24 L (59 - ) Glucose 131 H (65-110) mg/dL Calcium 8.7 (8.4-10.2) mg/dL Total Bilirubin 0.7 (0.2-1.3) mg/dL AST 28 (14-36) U/L ALT 14 (6-35) U/L Alkaline Phosphatase 78 (38-126) U/L Troponin I < 0.012 (0.000-0.034) ng/mL Total Protein 8.0 (6.3-8.2) g/dL Albumin 4.2 (3.5-5.1) g/dL Lipase 289 (23-300) U/L Discharge Plan Discharge Clinical Impression: Chest pain Patient Disposition: Left Without Being Sn Triaged Prescriptions: No Action lamotrigine [Lamictal] 200 mg tablet 200 mg PO DAILY metoprolol succinate [Toprol XL] 50 mg tablet extended release 24 hr 50 mg PO DAILY olmesartan-hydrochlorothiazide [Benicar HCT] 20-12.5 mg tablet 1 tablet PO DAILY ferrous sulfate 325 mg (65 mg iron) tablet 65 mg PO DAILY albuterol sulfate 90 mcg/actuation HFA aerosol inhaler 2 puff INHALATION PRN PRN (Reason: Shortness Of Breath) calcitriol 0.25 mcg capsule 0.25 mcg PO DAILY dapagliflozin propanediol [Farxiga] 10 mg tablet 10 mg PO DAILY Follow-up/Referrals: Phillip,Edwin Gaines MD [Primary Care Provider] -
[2024-09-17 18:10] VITALS: BP 138/90; PULSE 96; RESP 19; TEMP 36.5; O2SAT 96
[2024-09-17 18:23] LABS: Basophils Percent Auto 0.4 % (0.2-1.2); Eosinophils Absolute Auto 0.1 K/mm3 (0-0.3); Eosinophils Percent Auto 1.2 % (0-4.4); Hemoglobin 11.2 g/dL (12.0-15.0); Immature Granulocyte Absolute 0.01 K/mm3 (0.00-0.031); Immature Granulocyte Percent A 0.1 % (0-0.5); Lymphocytes Absolute Auto 3.63 K/mm3 (0.9-3.2); Lymphocytes Percent Auto 48.1 % (18.3-44.2); Mean Corpuscular HGB Conc 31.1 g/dl (32-36); Mean Corpuscular Hemoglobin 27.4 pg (26-34); Mean Platelet Volume 10.6 fl (7.4-10.4); Monocytes Absolute Auto 0.6 K/mm3 (0.1-0.6); Monocytes Percent Auto 7.3 % (2.6-8.5); Neutrophils Absolute Auto 3.2 K/mm3 (1.3-6.7); Neutrophils Percent Auto 42.9 % (45.5-73.1); Platelet Count Result 175 k/mm3 (150-375); Red Blood Count 4.09 M/mm3 (4.2-5.4); Red Cell Distribution Width 13.5 % (11.5-14.5); White Blood Count 7.5 K/mm3 (4.5-10.0)
[2024-09-17 18:33] LABS: Alanine Aminotransferase 14 U/L (6-35); Albumin Level 4.2 g/dL (3.5-5.1); Alkaline Phosphatase 78 U/L (38-126); Anion Gap 6 mmol/L (4-12); Aspartate Amino Transferase 28 U/L (14-36); Bilirubin,Total 0.7 mg/dL (0.2-1.3); Blood Urea Nitrogen 30 mg/dL (7-17); Calcium 8.7 mg/dL (8.4-10.2); Carbon Dioxide 26 mmol/L (22-30); Chloride 107 mmol/L (98-107); Estimated CRCL calculation 28 ml/min; Estimated Glomerular Filt Rate 24; Glucose 131 mg/dL (65-110); Lipase 289 U/L (23-300); Potassium 3.8 mmol/L (3.4-5.0); Prothrombin Time 13.6 Seconds (11.1-14.7); Sodium 139 mmol/L (137-145)
[2024-09-17 18:35] LABS: Partial Thromboplastin Time 64.4 Seconds (22.3-36.8)
[2024-09-17 18:45] LABS: Troponin I < 0.012 ng/mL (0.000-0.034)
[2024-09-17 19:40] LABS: D Dimer 0.45 ug/mL (<0.48)
--- NOTE | 2024-09-17 22:31 | PC.NURSE ---
Sherrie Torres called out for pt in triage around 2229 and no answer to call out.
== END 2024-09-17 22:30 | disposition left against medical advice (07) ==
PROVIDERS: Physician Assistant; Emergency Provider Emergency Medicine; PCP Family Medicine
DX: R07.9 Chest pain, unspecified (principal); I10 Essential (primary) hypertension; I38 Endocarditis, valve unspecified; E11.9 Type 2 diabetes mellitus without complications; E66.01 Morbid (severe) obesity due to excess calories; Z68.43 Body mass index [BMI] 50.0-59.9, adult; G47.33 Obstructive sleep apnea (adult) (pediatric); Z90.49 Acquired absence of other specified parts of digestive tract; Z90.710 Acquired absence of both cervix and uterus
CPT/HCPCS: 36415; 71046; 80053; 83690; 84484; 85025; 85380; 85610; 85730; 93005; 99199

== ENCOUNTER 2024-09-27 11:34 | Emergency (ER) | payer MEDICARE, MEDICAID, SELFPAY ==
--- NOTE | 2024-09-27 11:44 | ED_ITS ---
HPI - URI/Sore Throat General Chief Complaint: Upper Respiratory Infection Stated Complaint: cough,chills,MATTHEWS,diarrhea,sore throat Time Seen by Provider: 09/27/24 11:45 Source: patient Mode of arrival: ambulatory Limitations: no limitations History of Present Illness HPI Narrative: Leha is a 69-year-old female patient presenting to the clinic today with complaints of cough, body aches, chills, headache, diarrhea, and sore throat x2 days. She reports that the cough is nonproductive. She has taken Coricidin HBP for her symptoms. MD elicited complaint: sore throat and nasal congestion Related Data Home Medications ?Medication ?Instructions ?Recorded ?Confirmed ?Last Taken ?Type lamotrigine 200 mg tablet 200 mg PO DAILY 09/02/20 09/27/24 Unknown History (Lamictal) metoprolol succinate 50 mg 50 mg PO DAILY 09/02/20 09/27/24 10/03/22 History tablet,extended release 24 hr (Toprol XL) olmesartan 20 1 tablet PO DAILY 03/06/21 09/27/24 Unknown History mg-hydrochlorothiazide 12.5 mg tablet (Benicar HCT) albuterol sulfate 90 mcg/actuation 2 puff inhalation PRN PRN 04/23/24 09/27/24 U nknown History aerosol inhaler Shortness Of Breath calcitriol 0.25 mcg capsule 0.25 mcg PO DAILY 04/23/24 09/27/24 Unknown History dapagliflozin propanediol 10 mg 10 mg PO DAILY 04/23/24 09/27/24 Unknown History tablet (Farxiga) ferrous sulfate 325 mg (65 mg 65 mg PO DAILY 04/23/24 09/27/24 Unknown History iron) tablet Allergies Allergy/AdvReac Type Severity Reaction Status Date / Time ampicillin Allergy Mild Rash Verified 09/27/24 11:42 codeine Allergy Mild Rash Verified 09/27/24 11:42 diphenhydramine Allergy Mild Rash Verified 09/27/24 11:42 hydroxyzine Allergy Mild Rash Verified 09/27/24 11:42 morphine Allergy Mild Anaphylaxis Verified 09/27/24 11:42 phenytoin Allergy Mild Rash Verified 09/27/24 11:42 sulfamethoxazole Allergy Mild Rash Verified 09/27/24 11:42 tetracycline Allergy Mild Rash Verified 09/27/24 11:42 trimethobenzamide Allergy Mild Rash Verified 09/27/24 11:42 trimethoprim Allergy Mild Rash Verified 09/27/24 11:42 divalproex sodium Allergy Unknown Rash Verified 09/27/24 11:42 phenobarbital Allergy Unknown Rash Verified 09/27/24 11:42 Review of Systems Review of Systems: Pertinent positives per HPI. Patient denies any rash, visual changes, dizziness, shortness of breath, chest pain, palpitations, nausea, vomiting, diarrhea, constipation, abdominal pain, or any urinary issues. [facility] Past Medical History Medical History Morbid obesity Obstructive sleep apnea Seizures Hx of migraines Hypertension Obesity Tumor Tumor removed from underneath chin Surgical History Surgical History History of cholecystectomy History of hysterectomy Family History Family History Father Throat cancer Smoker Mother , from complications related to COPD obtain due to secondhand smoke Hypertension Social History Social History Smoking status: Never smoker Tobacco type: cigarettes Second hand tobacco smoke exposure: No Alcohol intake: never Substance use: never Substance use type: does not use Living arrangements: with family Occupation/Education: other Additional occupation/education comments: Disable Gender identity (if verbalized by the patient): Female Sexual Orientation (if Verbalized by the Patient): Straight or Heterosexual Spiritual care concerns: No Comments At the time of my signature, I reviewed and agree with the nursing past medical, surgical, social, and family history. There is no relevant family history pertinent to the patient complaint. Exam Narrative: General: Well-developed, morbidly obese, in no apparent distress Head: Normocephalic, atraumatic Eyes: Pupils equally round and reactive to light bilaterally, EOM intact, sclera and conjunctive clear, no discharge, lids normal Ears: TMs intact and congested, ear canals clear, no drainage, grossly hearing normal. Nose: Nares patent, clear nasal discharge, no inflammation, no sinus tenderness. Mouth: Oral pharynx red without lesions or masses, good dentition, MMM. Po stnasal drip Neck: Supple, trachea midline, no enlargement of anterior or posterior cervical nodes, no thyroid masses or goiter palpable. Cardio: Regular rate and rhythm, s1 and s2 normal, no murmur appreciated. Resp: Clear to auscultation bilaterally, no rhonchi, rales, wheezing or rubs Course Course Emergency Course: Portions of this record may have been created with voice recognition software. Level of Care: Express Care Visit Vital Signs Vital signs: Vital Signs Temperature 36.5 C 09/27/24 11:48 Pulse Rate 75 09/27/24 11:48 Respiratory Rate 16 09/27/24 11:48 Blood Pressure 136/58 L 09/27/24 11:48 Pulse Oximetry 97 09/27/24 11:48 Oxygen Delivery Room Air 09/27/24 11:48 Temperature 36.5 C 09/27/24 11:48 Pulse Rate 75 09/27/24 11:48 Respiratory Rate 16 09/27/24 11:48 Blood Pressure 136/58 L 09/27/24 11:48 Pulse Oximetry 97 09/27/24 11:48 Oxygen Delivery Room Air 09/27/24 11:48 Vital signs reviewed MDM - URI/Sore Throat MDM Narrative Medical decision making narrative: At the time of visit patient is resting comfortably on the exam table. Patient appears to be nontoxic. Labs: COVID, influenza, and strep test performed and negative in the today. Will send strep for culture. Plan: I suspect patient has viral URI/pharyngitis. Supportive measures were discussed with the patient and they voiced understanding discharge instructions and agrees to treatment plan. Return precautions reviewed Differential Diagnosis Differential diagnosis: Likely upper respiratory infection, otitis media, si nusitis, viral infection, bronchitis, influenza, pharyngitis and other Discharge Plan Discharge Clinical Impression: Upper respiratory infection with cough and congestion Pharyngitis Qualifiers: Pharyngitis/tonsillitis etiology: unspecified etiology Qualified Code(s): J02.9 - Acute pharyngitis, unspecified Patient Disposition: Home, Self-Care Condition: Stable Instructions: Antibiotic Form, Pharyngitis (ED), Upper Respiratory Infection (ED) Additional Instructions: COVID, influenza, and strep test was negative in the clinic today. Strep culture was sent to the lab and if this comes back positive we will contact him place you on antibiotics at time. May take Coricidin HBP for cold/flu symptoms Increase fluids and stay well hydrated Tylenol/motrin for pain/fever Flonase and OTC antihistamines as directed Vicks vapor rub to open sinuses Sinus rinses for congestion Cepacol spray, cough drops, throat lozenges, warm tea with honey/lemon, gargle salt water to soothe throat BRAT diet for diarrhea Clear liquids x 24 hours then advance as tolerated for nausea/vomiting Go to the ED if you develop a worsening in your condition- high fever not controlled by Tylenol or Motrin, dehydration, weakness, lethargy, shortness of breath, or chest pain. Follow up with your PCP in 3-5 days if symptoms persist. Patient Language: Citizen Of [place] Prescriptions: No Action lamotrigine [Lamictal] 200 mg tablet 200 mg PO DAILY metoprolol succinate [Toprol XL] 50 mg tablet extended release 24 hr 50 mg PO DAILY olmesartan-hydrochlorothiazide [Benicar HCT] 20-12.5 mg tablet 1 tablet PO DAILY ferrous sulfate 325 mg (65 mg iron) tablet 65 mg PO DAILY albuterol sulfate 90 mcg/actuation HFA aerosol inhaler 2 puff INHALATION PRN PRN (Reason: Shortness Of Breath) calcitriol 0.25 mcg capsule 0.25 mcg PO DAILY dapagliflozin propanediol [Farxiga] 10 mg tablet 10 mg PO DAILY Follow-up/Referrals: Phillip,Edwin Gaines MD [Primary Care Provider] - Time of Disposition: 12:04 Quality NIHSS Nursing Documentation ED NIHSS nursing documentation: reviewed/agree
[2024-09-27 11:48] VITALS: BP 136/58; PULSE 75; RESP 16; TEMP 36.5; O2SAT 97
[2024-09-27 11:59] LABS: EDSTREPNEGPOS1 Negative (Negative)
[2024-09-27 12:20] LABS: EDCOVIDSCREEN Negative (Negative); EDINFLUASCREEN Negative (Negative); EDINFLUBSCREEN Negative (Negative)
== END 2024-09-27 12:08 | disposition home or self-care (01) ==
PROVIDERS: Emergency Provider Nurse Practitioner Family; PCP Family Medicine
DX: J06.9 Acute upper respiratory infection, unspecified (principal); R05.9 Cough, unspecified; J02.9 Acute pharyngitis, unspecified; Z20.822 Contact with and (suspected) exposure to COVID-19; I10 Essential (primary) hypertension; G40.909 Epilepsy, unspecified, not intractable, without status epilepticus; E66.01 Morbid (severe) obesity due to excess calories
CPT/HCPCS: 87081; 87426; 87804; 87880; 99213; G0463

== ENCOUNTER 2025-06-17 14:05 | Emergency (ER) | payer MEDICARE, MEDICAID, SELFPAY ==
--- NOTE | ~2025-06-17 | XR_ITS ---
XR finger 2nd RT min 2V 06/17/2025 14:46 Indication: Right second finger pain Procedure: 3 views right second finger Comparison: No prior studies for comparison. Findings: No acute fracture, subluxation or dislocation. No significant soft tissue abnormality. No foreign bodies. There is mild polyarticular osteoarthritis. Impression: 1: No acute fracture. Reviewed, dictated and finalized at location O. Impression: 1: No acute fracture.
[2025-06-17 14:14] VITALS: BP 133/72; PULSE 62; RESP 18; TEMP 36.8; O2SAT 96
--- NOTE | 2025-06-17 14:29 | ED.GENADULT ---
HPI - General Adult General Chief complaint: Extremity Injury, Upper Stated complaint: Fall / Rt Hand 1st Finger Pain Time Seen by Provider: 06/17/25 14:29 Source: patient and RN notes reviewed Mode of arrival: ambulatory Limitations: no limitations History of Present Illness HPI narrative: 70 year old female who presents to express care with complaints of pain to her right index finger after sustaining a fall about 3 weeks ago. Patient reports that she was seen after her fall and was diagnosed with rib fractures. Patient reports that she has had persistent pain to her right index finger especially with movement. Patient reports that she has been taking Tylenol for her discomfort. Patient is able to straighten and bend finger on own power with minimal swelling noted to finger. MD complaint: right index finger Onset (ago): week(s) (3) Location: right and upper extremity (index finger) Severity scale (1-10): 10 Treatments prior to arrival: other (Tylenol) Related Data Home Medications ?Medication ?Instructions ?Recorded ?Confirmed ?Last Taken ?Type lamotrigine 200 mg tablet 200 mg PO DAILY 09/02/20 09/27/24 Unknown History (Lamictal) metoprolol succinate 50 mg 50 mg PO DAILY 09/02/20 09/27/24 10/03/22 History tablet,extended release 24 hr (Toprol XL) olmesartan 20 1 tablet PO DAILY 03/06/21 09/27/24 Unknown History mg-hydrochlorothiazide 12.5 mg tablet (Benicar HCT) albuterol sulfate 90 mcg/actuation 2 puff inhalation PRN PRN 04/23/24 09/27/24 Unknown History aerosol inhaler Shortness Of Breath calcitriol 0.25 mcg capsule 0.25 mcg PO DAILY 04/23/24 09/27/24 Unknown History dapagliflozin propanediol 10 mg 10 mg PO DAILY 04/23/24 09/27/24 Unknown History tablet (Farxiga) ferrous sulfate 325 mg (65 mg 65 mg PO DAILY 04/23/24 09/27/24 Unknown History iron) tablet Allergies Allergy/AdvReac Type Severity Reaction Status Date / Time ampicillin Allergy Mild Rash Verified 06/17/25 15:19 codeine Allergy Mild Rash Verified 06/17/25 15:19 diphenhydramine Allergy Mild Rash Verified 06/17/25 15:19 hydroxyzine Allergy Mild Rash Verified 06/17/25 15:19 morphine Allergy Mild Anaphylaxis Verified 06/17/25 15:19 phenytoin Allergy Mild Rash Verified 06/17/25 15:19 sulfamethoxazole Allergy Mild Rash Verified 06/17/25 15:19 tetracycline Allergy Mild Rash Verified 06/17/25 15:19 trimethobenzamide Allergy Mild Rash Verified 06/17/25 15:19 trimethoprim Allergy Mild Rash Verified 06/17/25 15:19 divalproex sodium Allergy Unknown Rash Verified 06/17/25 15:19 phenobarbital Allergy Unknown Rash Verified 06/17/25 15:19 Review of Systems Review of Systems: CONSTITUTIONAL: Denies fever, chills, or sweats. EYES: Denies visual changes, redness, or discharge. ENT: Denies rhinorrhea, congestion, sore throat, or otalgia. CARDIOVASCULAR: Denies chest pain, palpitations, or edema. RESPIRATORY: Denies cough or dyspnea.reports no increased pain with deep breathing GASTROINTESTINAL: Denies abdominal pain, nausea, vomiting, or diarrhea. GENITOURINARY: Denies dysuria or hematuria. SKIN: Denies rash or itching. MUSCULOSKELETAL: Denies back pain, positive for right index finger after sustaining fall 3 weeks ago or myalgia. NEUROLOGIC: Denies headache, numbness, or weakness. PSYCHIATRIC: reports history of anxiety or depression. All systems reviewed & are unremarkable except as noted in HPI and below PMFSH Past Medical History Medical History Morbid obesity Obstructive sleep apnea Seizures Hx of migraines Hypertension Obesity Tumor Tumor removed from underneath chin Surgical History Surgical History History of cholecystectomy History of hysterectomy Family History Family History Father Throat cancer Smoker Mother , from complications related to COPD obtain due to secondhand smoke Hypertension Social History Social History Smoking status: Never smoker Tobacco type: cigarettes Second hand tobacco smoke exposure: No Alcohol intake: never Substance use: never Substance use type: does not use Living arrangements: with family Occupation/Education: other Additional occupation/education comments: Disable Gender identity (if verbalized by the patient): Female Sexual Orientation (if Verbalized by the Patient): Straight or Heterosexual Spiritual care concerns: No Comments At time of signature, agree with nursing past medical, surgical, social and family history. There is no relevant family history pertinent to the presenting complaint Exam Narrative: GENERAL: Well-appearing, well-nourished,obesity, and in no acute distress. HEAD: Normocephalic, atraumatic. EYES: PERRLA and EOMI. ENT: Nares clear, no rhinorrhea or epistaxis. Mucous membranes moist.TM's normal throat pink with no exudates or selling NECK: Supple. no lymphadenopathy CHEST: Clear to auscultation. No respiratory distress.denies cough or any ain with deep breathing, SAO2 96% on room air HEART: Regular rate and rhythm. No murmur heard. Normal peripheral pulses. ABDOMEN: Soft, nontender, nondistended, normal active bowel sounds. EXTREMITIES: Normal range of motion. No edema.Exception noted to mild swelling to right index finger with pain. Had fall 3 weeks ago has had persistent pain to finger unsure what happened to finger in fall, Patient has full mobility of right index finger but with discomfort.strong right radial pulse denies any tingling or numbness SKIN: Warm, dry, no rash. NEURO: No focal deficits. Alert and oriented x3. Course Course Emergency Course: Patient is aware of diagnosis, understands and agrees to treatment plan.? Anticipatory guidance given.? Patient agrees to follow-up as directed and is aware of reasons to seek care at the emergency department. Portions of this record may have been created with voice recognition software Level of Care: Express Care Visit Vital Signs Vital signs: Vital Signs Temperature 36.8 C 06/17/25 14:14 Pulse Rate 62 06/17/25 14:14 Respiratory Rate 18 06/17/25 14:14 Blood Pressure 133/72 06/17/25 14:14 Pulse Oximetry 96 06/17/25 14:14 Oxygen Delivery Room Air 06/17/25 14:14 Temperature 36.8 C 06/17/25 14:14 Pulse Rate 62 06/17/25 14:14 Respiratory Rate 18 06/17/25 14:14 Blood Pressure 133/72 06/17/25 14:14 Pulse Oximetry 96 06/17/25 14:14 Oxygen Delivery Room Air 06/17/25 14:14 Reviewed Medical Decision Making MDM Narrative Medical decision making narrative: Exam findings and imaging show no acute concerns or changes; patient is non-toxic appearing and is in no distress.? Patient is appropriate for outpatient treatment and follow-up Differential Diagnosis Differential Diagnosis: right index finger pain, right index finger strain, osteoarthritis, fall 3 weeks ago Medical Records Medical records reviewed: Yes I reviewed the external patient's medical records. Vital Signs Vital Signs: Vital Signs Temperature 36.8 C 06/17/25 14:14 Pulse Rate 62 06/17/25 14:14 Respiratory Rate 18 06/17/25 14:14 Blood Pressure 133/72 06/17/25 14:14 Pulse Oximetry 96 06/17/25 14:14 Oxygen Delivery Room Air 06/17/25 14:14 Temperature 36.8 C 06/17/25 14:14 Pulse Rate 62 06/17/25 14:14 Respiratory Rate 18 06/17/25 14:14 Blood Pressure 133/72 06/17/25 14:14 Pulse Oximetry 96 06/17/25 14:14 Oxygen Delivery Room Air 06/17/25 14:14 reviewed Imaging Data Attestation: I personally reviewed and interpreted this imaging study as follows: My impression: no acute fracture, mild polyarticular osteoarthritis Radiologist's impression: [facility] [address] [place] [address] XRay Report Signed Patient: Carolina Rowland : 1955 MR#: [id number] Age: 70 Acct:[id number] Loc: [facility] ADM Date: 06/17/25Attending Dr: Ordering Physician: Joanna Shrestha APRN Date of Service: 06/17/25 Procedure(s): XR finger 2nd RT min 2V Accession Number(s): [id number] cc: Phillip, Edwin Gaines MD; Joanna Shrestha APRN~ XR finger 2nd RT min 2V 06/17/2025 14:46 Indication: Right second finger pain Procedure: 3 views right second finger Comparison: No prior studies for comparison. Findings: No acute fracture, subluxation or dislocation. No significant soft tissue abnormality. No foreign bodies. There is mild polyarticular osteoarthritis. Impression: 1: No acute fracture. Reviewed, dictated and finalized at location O. Please be advised this is a medical document. It is intended for [id number] communication. It is written in medical language and may contain unfamiliar abbreviations or verbiage. Medical documents are intended to carry relevant information, facts as evident, and the clinical opinion of the practitioner at the time of the encounter. This report may have been done utilizing a voice recognition system. Attempts have been made to correct errors. However, there may be uncorrected grammatical, spelling, and recognition errors present. The file time of this note does not necessarily represent the time of service. Dictated By: Chip Wick MD 06/17/25 1449 Signed By: <Electronically signed by Chip Wick MD in OV> Critical Care Time Critical Care Time Critical Care Time: No Discharge Plan Discharge Clinical Impression: Strain of right index finger Injury of right index finger Qualifiers: Encounter type: initial encounter Qualified Code(s): S69.91XA - Unspecified injury of right wrist, hand and finger(s), initial encounter Patient Disposition: Home Condition: Stable Instructions: Antibiotic Form, Arthralgia (ED) Additional Instructions: Tylenol for lesser pain Ibuprofen regularly for the next 2-3 days for the inflammation Follow-up with orthopedic surgeon or hand surgeon if continued problems Follow-up with PCP if further problems or concerns Ice to the area 20-30 minutes 4-6 times a day Elevate above heart Dr Elam [phone] hand surgeon if further problems or concerns If your symptoms persist, change or worsen significantly before you can contact your personal physician then please, without delay, go to the emergency department for further evaluation. Follow-up with PCP in 7-10 days or sooner if needed Follow up with PCP soon in regards to your blood pressure which is elevated above threshold for referral. Blood pressure above 120/80 may indicate pre-hypertension. 133/72 Patient Language: [place] Prescriptions: No Action lamotrigine [Lamictal] 200 mg tablet 200 mg PO DAILY metoprolol succinate [Toprol XL] 50 mg tablet extended release 24 hr 50 mg PO DAILY olmesartan-hydrochlorothiazide [Benicar HCT] 20-12.5 mg tablet 1 tablet PO DAILY ferrous sulfate 325 mg (65 mg iron) tablet 65 mg PO DAILY albuterol sulfate 90 mcg/actuation HFA aerosol inhaler 2 puff INHALATION PRN PRN (Reason: Shortness Of Breath) calcitriol 0.25 mcg capsule 0.25 mcg PO DAILY dapagliflozin propanediol [Farxiga] 10 mg tablet 10 mg PO DAILY Follow-up/Referrals: Phillip,Edwin Gaines MD [Primary Care Provider] Time of Disposition: 15:40 Quality [place] Coma Scale Eyes: Open Verbal: Oriented and Alert Motor: Follows Commands [place] Coma Total Score: 15
== END 2025-06-17 15:41 | disposition home or self-care (01) ==
PROVIDERS: Emergency Provider Registered Nurse; PCP Family Medicine
DX: S69.81XA Other specified injuries of right wrist, hand and finger(s), initial encounter (principal); W19.XXXA Unspecified fall, initial encounter; I10 Essential (primary) hypertension; G40.909 Epilepsy, unspecified, not intractable, without status epilepticus; E66.01 Morbid (severe) obesity due to excess calories; Z68.43 Body mass index [BMI] 50.0-59.9, adult
CPT/HCPCS: 73140; 99213; G0463